=== PATIENT | male | born 1995 | race American Indian/Alaskan Native ===

== ENCOUNTER 2017-07-25 01:38 | Emergency (ER) | payer SELFPAY ==
[2017-07-25 02:29] VITALS: BP 120/69
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
[2017-07-25] MEDS ORDERED: MOTRIN PO ONE (03:57)
== END 2017-07-25 04:38 | disposition home or self-care (01) ==
LOC: ED 01:38
DX: M79.651 Pain in right thigh (principal)
CPT/HCPCS: 99282

== ENCOUNTER 2018-10-24 21:23 | Emergency (ER) | payer SELFPAY ==
--- NOTE | 2018-10-24 21:38 | Event Note ---
ED Screening Note Date of service: 10/24/18 Time: 21:35 ED Screening Note: This is a 23 y.o. M. that presents to the ER with swelling and discoloration to left 3rd finger nail. Patient states he accidentally slammed his finger into a car door 2 days ago. This initial assessment/diagnostic orders/clinical plan/treatment(s) is/are subject to change based on patients health status, clinical progression and re- assessment by fellow clinical providers in the ED. Further treatment and workup at subsequent clinical providers discretion. Patient/guardian urged not to elope from the ED as their condition may be serious if not clinically assessed and managed. Initial orders include:
--- NOTE | 2018-10-25 02:32 | Emergency Department Report ---
Upper Extremity - [facility] Chief Complaint: Extremity Injury, Upper Stated Complaint: FINGER PAIN Time Seen by Provider: 10/24/18 21:35 Upper Extremity: Left Middle Finger Occurred When: 2 Days Mechanism: Crush (slammed in car door ) Severity: moderate Symptoms: Yes Pain with Movement, Yes Swelling, Yes Bruising/Ecchymosis, No Deformity, No Limited Range of Movement, No Numbness, No Weakness, No Laceration or Abrasion Other History: This is a 23 y.o. M. that presents to the ER with swelling and discoloration to left 3rd finger nail. Patient states he accidentally slammed his finger into a car door 2 days ago. ED Review of Systems ROS: Stated complaint: FINGER PAIN Other details as noted in HPI Constitutional: denies: chills, fever Eyes: denies: eye pain, eye discharge, vision change ENT: denies: ear pain, throat pain Respiratory: denies: cough, shortness of breath, wheezing Cardiovascular: denies: chest pain, palpitations Endocrine: no symptoms reported Gastrointestinal: denies: abdominal pain, nausea, diarrhea Genitourinary: denies: urgency, dysuria Musculoskeletal: joint swelling (left distal middle finger pain swelling ). denies: back pain, arthralgia Skin: denies: rash, lesions Neurological: denies: headache, weakness, paresthesias, vertigo Psychiatric: denies: anxiety, depression Hematological/Lymphatic: denies: easy bleeding, easy bruising ED Past Medical Hx - Past Medical History Previous Medical History?: No - Surgical History Past Surgical History?: No - Social History Smoking Status: Never Smoker - Medications Home Medications: Home Medications Medication Instructions Recorded Confirmed Last Taken Type Ibuprofen [Motrin] 600 mg PO Q8H PRN #12 tablet 07/25/17 Unknown Rx cephALEXin [Keflex] 500 mg PO Q8HR 10 Days #30 cap 10/25/18 Unknown Rx traMADol [Ultram] 50 mg PO Q6HR PRN #12 tablet 10/25/18 Unknown Rx Upper Extremity Exam - Exam General: Vital signs noted. No distress. Alert and acting appropriately. Head and Torso: No HEENT Abnormality, No Neck Tenderness, No Chest/Lungs Abnormality, No Abdominal Tenderness, No Back Tenderness Shoulder Exam: Yes Normal Range of Motion in Shoulder, No Shoulder Tenderness, No Clavicle Tenderness, No Shoulder Deformity, No AC Joint Tenderness Arm Exam: No Arm/Humerus Tenderness, No Arm Deformity Elbow: No Elbow Tenderness, No Normal Range of Motion in Elbow, No Elbow Deformity Forearm: No Forearm Tenderness, No Forearm Deformity, No Pain with Pronation, No Pain with Supination Wrist: Yes Normal ROM in Wrist, No Wrist Tenderness, No Wrist Deformity, No Snuffbox Tenderness, No Pain with Axial Thumb Compression Hand: Yes Digit Tenderness (distal finger pain swelling ecchymosis subqual hematoma ), Yes Normal ROM in Digit(s), No Hand Tenderness, No Hand Deformity, No Digit(s) Deformity, No Tendon Dysfunction CMS Exam: Yes Normal Distal Pulses, Yes Normal Distal Sensation, No Broken Skin, No Normal Capillary Refill (subunqual hematotma left middle finger ) ED Course Vital Signs 10/24/18 21:32 Temperature 98.8 F Pulse Rate 74 Respiratory 18 Rate Blood Pressure 145/76 O2 Sat by Pulse 96 Oximetry - I & D Left Dorsal Finger Type of Procedure: Simple Site: left middle finger subungual hematoma Blade Size: 11 I & D Procedure: betadine prep Progress: left middle finger subungaul hematoma finger cleaned with betadine solution , anesthesia with 1% lidocaine plain, via digital block, incision with 11 blade scaple , x 1 moderate bloody drainagae , irrigated with 10 cc sterile saline, sterile dressing applied all bleeding is controlled pt ginven wound care instructions includinng follow up with pcp and symptoms of infection ED Medical Decision Making - Radiology Data Radiology results: image reviewed no fracture no soft tissue abnormality , - Medical Decision Making left middl finger sungual hematoma see procedure note all bleeding is controlled pt tolerated procedure with minimal distress. pt will follow up with pcp in 2-3 days pt plan ultram keflex , pt verbalized agreement and understanding of same. , Critical care attestation.: If time is entered above; I have spent that time in minutes in the direct care of this critically ill patient, excluding procedure time. ED Disposition Clinical Impression: Subungual hematoma of finger of left hand Qualifiers: Encounter type: initial encounter Qualified Code(s): S60.10XA - Contusion of unspecified finger with damage to nail, initial encounter Disposition: TO HOME OR SELFCARE Is pt being admited?: No Does the pt Need Aspirin: No Condition: Stable Instructions: Subungual Hematoma (ED) Prescriptions: cephALEXin [Keflex] 500 mg PO Q8HR 10 Days #30 cap traMADol [Ultram] 50 mg PO Q6HR PRN #12 tablet PRN Reason: Pain Referrals: PRIMARY CARE,MD [Primary Care Provider] - 3-5 Days Forms: Work/School Release Form(ED) Time of Disposition: 02:50
--- NOTE | 2018-10-25 03:50 | XRay Report ---
LEFT MIDDLE FINGER 2 VIEWS [id number] INDICATION: Closed finger in door 2 days ago, pain, ecchymotic nailbed COMPARISON: None available. FINDINGS: Soft tissue swelling is seen in the distal phalanx of the middle finger. No fractures or di slocations are seen. Signer Name: Rodriguez Iglesias MD Signed: 10/25/2018 3:45 AM Workstation Name: [employer]
[2018-10-25 06:53] VITALS: BP 128/84
== END 2018-10-25 02:55 | disposition home or self-care (01) ==
LOC: ED 21:23
DX: S60.10XA Contusion of unspecified finger with damage to nail, initial encounter (principal); S67.193A Crushing injury of left middle finger, initial encounter; X58.XXXA Exposure to other specified factors, initial encounter; Y93.89 Activity, other specified; Y92.89 Other specified places as the place of occurrence of the external cause; Y99.8 Other external cause status

== ENCOUNTER 2018-12-31 11:09 | Emergency (ER) | payer SELFPAY ==
[2018-12-31 11:17] VITALS: BP 119/62
--- NOTE | 2018-12-31 11:33 | Emergency Department Report ---
Chief Complaint: Urogenital-Male Stated Complaint: GENTIALS DISCHARGE Time Seen by Provider: 12/31/18 11:21 - HPI History of Present Illness: This is a 23-year-old male nontoxic, well in appearance with no signs of distress presents to the ED for STD check. Patient stated that he has some mild itching and small white color discharge which is mostly in the morning and resolved throughout the day. Curretnly right now the patient denies any penile discharged but stated has some itching. Patient stated he is asymptotic. Denies any penile discharge, testicular pain, or swelling. Patient denies any urinary symptoms. Patient denies any fever, chills, headache, nausea, vomiting, chest pain or shortness of breathe. denies any other symptoms or complaints. Denies any allergies or PMH. - Exam Vital Signs: Vital Signs 12/31/18 11:14 Temperature 98.2 F Pulse Rate 73 Respiratory 18 Rate Blood Pressure 119/62 O2 Sat by Pulse 97 Oximetry Physical Exam: no penile discharge. no back pain. no abdominal pain. no urinary symptoms. MSE screening note: Focused history and physical exam performed. Due to findings the following was ordered: ED Medical Decision Making - Medical Decision Making This is a 23-year-old male that presents with nonmedical emergency complaint. Patient is just requested for a STD test. Patient denies any symptoms. I gave patient many different referrals to follow-up with STD concerns. Patient was instructed to Follow-up with a primary care doctor in 3-5 days or if symptoms worsen and continue return to emergency room as soon as possible. At time of discharge, the patient does not seem toxic or ill in appearance. No acute signs of distress noted. Patient agrees to discharge treatment plan of care. No further questions noted by the patient. ED Disposition for MSE Clinical Impression: Possible exposure to STD Disposition: Z-07 MED SCREENING EXAM-LEFT Is pt being admited?: No Does the pt Need Aspirin: No Condition: Stable Instructions: Safe Sex (ED) Additional Instructions: Follow-up with with all the referrals that you have received during todays ED visit or if symptoms worsen and continue return to the emergency department as soon as possible. Referrals: PRIMARY CARE, [Referring] - 3-5 Days KRISTOPHER CROOKS MD [Staff Physician] - 3-5 Days [facility] [Outside] - 3-5 Days [facility] [Outside] - 3-5 Days
== END 2018-12-31 14:30 | disposition left against medical advice (07) ==
LOC: ED 11:09
DX: R36.9 Urethral discharge, unspecified (principal); L29.9 Pruritus, unspecified; Z20.2 Contact with and (suspected) exposure to infections with a predominantly sexual mode of transmission